=== PATIENT | male | born 1935 | race Caucasian/White ===

== ENCOUNTER 2018-04-22 18:30 | Observation (INO) ==
[2018-04-22 20:21] LABS: Baso % (Auto) 0.3 % (0.0-2.0); Eos % (Auto) 0.3 % (0.0-4.0); Hemoglobin 13.7 gm/dL (13.0-17.0); Lymph # (Auto) 0.9 th/mm3 (1.0-4.8); Lymph % (Auto) 9.5 % (9.0-44.0); Mean Corpuscular HGB Conc 32.7 % (32.0-36.0); Mean Corpuscular Hemoglobin 29.2 pg (27.0-34.0); Mean Corpuscular Volume 89.2 fL (80.0-100.0); Mean Platelet Volume 7.6 fL (7.0-11.0); Mono # (Auto) 0.4 th/mm3 (0.0-0.9); Mono % (Auto) 4.2 % (0.0-8.0); Neut # (Auto) 7.8 th/mm3 (1.8-7.7); Neut % (Auto) 85.7 % (16.0-70.0); Platelet Count 262 th/mm3 (150-450); Red Blood Count 4.71 mil/mm3 (4.50-5.90); Red Cell Distribution Width 13.5 % (11.6-17.2); White Blood Count 9.1 th/mm3 (4.0-11.0)
[2018-04-22 20:30] LABS: Bilirubin,Urine Negative (Negative); Clarity,Urine Slightly Cloudy (Clear); Color,Urine Yellow (Yellw/Straw); Leukocyte Esterase,Urine Negative (Negative); Nitrite,Urine Negative (Negative); PH,Urine 6.5 (5.0-8.5); Urobilinogen,Urine 0.2 mg/dL (Less than 2)
[2018-04-22 20:32] LABS: Chloride 105 meq/L (98-107); Potassium 3.8 meq/L (3.5-5.1); Sodium 139 meq/L (136-145)
--- NOTE | 2018-04-22 20:33 | XR ---
EXAM DATE: 04/22/2018 8:23 PM EST AGE/SEX: 82 years / Male INDICATIONS: Hypertension. Weakness. CLINICAL DATA: This is the patient's subsequent encounter. Patient reports that signs and symptoms h ave been present for 1 day and indicates a pain score of 4/10. MEDICAL/SURGICAL HISTORY: None. None. COMPARISON: [facility], XR CHEST PA AND LAT, 07/24/2017. . FINDINGS: A single AP view of the chest demonstrates the lungs to be symmetrically aerated without evidence of mass, infiltrate or effusion. The cardiomediastinal contours are unremarkable. Osseous structures a re intact. CONCLUSION: No active disease. Electronically signed by: Pelon Sanchez MD Board Certified Radiologist 04/22/2018 8:32 PM EST
[2018-04-22 20:34] LABS: Calcium 8.8 mg/dL (8.5-10.1)
[2018-04-22 20:35] LABS: Anion Gap 10 meq/L (5-15); Blood Urea Nitrogen 33 mg/dL (7-18); Carbon Dioxide 23.9 meq/L (21.0-32.0); Glucose,Random 246 mg/dL (74-106)
[2018-04-22 20:37] LABS: Activated Partial Thrombo Time 24.8 sec (23.4-31.7); INR 1.1 Ratio; Prothrombin Time 11.1 sec (9.8-11.6)
[2018-04-22 20:38] LABS: Glomerular Filtration Rate 42 mL/min (>89)
--- NOTE | 2018-04-22 20:42 | ED ---
HPI General Chief Complaint: Nausea/Vomiting/Diarrhea Stated Complaint: dizziness/n/v Time Seen by Provider: 04/22/18 19:51 Source: patient and family Mode of arrival: ambulatory Limitations: no limitations History of Present Illness complaint: Reports dizziness Onset (ago): hour(s) (16) Time: 03:01 Timing: awoke with symptoms Description: Reports sense of movement, "room spinning" and off-balance History of similar episodes: No History of trauma: No Severity: moderate Relieving factors: remaining still Exacerbating factors: movement and position Associated symptoms: Reports ataxia, nausea and vomiting; Denies chest pain, confusion, diaphoresis, fever, chills, malaise, rash, shortness of breath, syncope, weakness and vision changes Related Data Home Medications Medication Instructions Recorded Confirmed amlodipine 5 mg PO DAILY 04/22/18 04/22/18 atorvastatin 40 mg PO DAILY 04/22/18 04/22/18 carvedilol 3.125 mg PO BID 04/22/18 04/22/18 cholecalciferol (vitamin D3) 2,000 unit PO DAILY 04/22/18 04/22/18 [Vitamin D3] glimepiride 2 mg PO BID 04/22/18 04/22/18 losartan 25 mg PO DAILY 04/22/18 04/22/18 sitagliptin [Januvia] 25 mg PO DAILY 04/22/18 04/22/18 Allergies Allergy/AdvReac Type Severity Reaction Status Date / Time Sulfa (Sulfonamide Allergy Severe HIVES Verified 04/22/18 18:49 Antibiotics) Review of Systems ROS: all other systems reviewed are negative [facility] Medical History Medical History History of high blood pressure (Acute) History of high cholesterol (Acute) History of umbilical hernia (Acute) Hx of coronary artery disease (Acute) Hx of diabetes mellitus (Acute) Surgical History Surgical History History of umbilical hernia repair (Acute) Hx of heart artery stent (Acute) Family History Family History Mother Family history of emphysema Father Family history of diabetes mellitus Social History Social History Substance History: No History of Abuse Second Hand Smoke Exposure: No Smoking Status: Former smoker Number of Pack-Years (if former smoker): 25 Smoking End Date: Patient quit smoking 40 years ago How Often Do You Have a Drink Containing Alcohol: Monthly or less Recent Travel in [facility] within the Last 8 Weeks: No Recent Out of Country Travel within the Last 8 Weeks: No Immunization History Tetanus Immunization: Unsure Exam Narrative Exam Narrative: GENERAL: Well-developed well-nourished male no acute distress no respiratory distress; GCS 15; NIH SS 0 SKIN: Focused skin assessment warm/dry. HEAD: Atraumatic. Normocephalic. EYES: Pupils equal and round. No scleral icterus. No injection or drainage. Horizontal nystagmus, no vertical nystagmus. ENT: No nasal bleeding or discharge. Mucous membranes pink and moist. NECK: Trachea midline. No JVD. CARDIOVASCULAR: Regular rate and rhythm. No murmur appreciated. RESPIRATORY: No accessory muscle use. Clear to auscultation. Breath sounds equal bilaterally. GASTROINTESTINAL: Abdomen soft, non-tender, nondistended. Hepatic and splenic margins not palpable. MUSCULOSKELETAL: No obvious deformities. No clubbing. No cyanosis. No edema. NEUROLOGICAL: Awake and alert. No obvious cranial nerve deficits. Motor grossly within normal limits. No limb ataxia. No pronator drift. Sensory exam intact. DTRs 2+ and equal without clonus. Normal speech. PSYCHIATRIC: Appropriate mood and affect; insight and judgment normal. Course Consultations Consultation #1: Discussed with Dr. Puente recommends observation for echo MRI and initiating the patient on aspirin and Plavix will see in consultation Initial Documented Vital Signs Temperature 98.9 F 04/22/18 18:50 Pulse Rate 63 04/22/18 18:50 Respiratory Rate 18 04/22/18 18:50 Blood Pressure 181/77 H 04/22/18 18:50 Pulse Oximetry 99 04/22/18 18:50 Last Documented Vital Signs Temperature 96.2 F L 04/23/18 11:35 Pulse Rate 74 04/23/18 11:35 Respiratory Rate 18 04/23/18 11:35 Blood Pressure 153/74 H 04/23/18 11:35 Pulse Oximetry 98 04/23/18 11:35 Medical Decision Making [facility] Narrative Medical decision making narrative: 82-year-old male with dizziness and some mild balance disturbance since 3 AM. Symptoms have been unchanged since onset. Patient noted symptoms after awakening from sleep at 3 AM. Patient went to bed feeling well around 10 PM Monday evening. No chest pain no shortness of breath has had some vomiting. No headache no loss of vision no double vision initially felt like ceiling was spinning. Symptoms do not appear to be positional. Patient has history of CAD, hypertension, dyslipidemia, diabetes. Takes asa 81 mg daily no other blood thinners. No recent febrile illness. Patient placed on monitor IV access obtained specimens collected and sent for resulting patient given bolus of normal saline to 500 cc with maintenance fluids at [address] brain noncontrast ordered along with CTA of the head and neck stroke alert not called as current NIH score is 0, during evaluation nystagmus resolved, has no actual symptoms at this time; denies dizzness nausea and no vomiting. Call placed to neurology; discussed with Dr. Puente; recommends unremarkable studies aspirin Plavix 23-hour observation and neurology consult. Discussed with neurologist aware of imaging results and will see in consultation in the a.m.; call placed to [facility] service Dr Saini; patient and family informed of all imaging results and lab results and is agreeable to stay for observation further evaluation with MRI and echo Medical Screen Exam Complete: Yes Emergency Medical Condition: Yes Differential Diagnosis Differential Diagnosis: Vertigo, labyrinthitis, TIA, cerebellar CVA, VBI, arrhythmia Medical Records Medical records reviewed: Yes I reviewed the patient's medical records. Lab Data Lab results reviewed: Yes I reviewed the patient's lab results. Result diagrams: 04/23/18 04:35 04/23/18 04:35 Lab Results 04/22/18 04/22/18 04/22/18 Range/Units 20:10 20:10 20:10 CBC w Diff Auto diff final WBC 9.1 (4.0-11.0) th/mm3 RBC 4.71 (4.50-5.90) mil/mm3 Hgb 13.7 (13.0-17.0) gm/dL Hct 42.0 (39.0-51.0) % MCV 89.2 (80.0-100.0) fL MCH 29.2 (27.0-34.0) pg MCHC 32.7 (32.0-36.0) % RDW 13.5 (11.6-17.2) % Plt Count 262 (150-450) th/mm3 MPV 7.6 (7.0-11.0) fL Neut % (Auto) 85.7 H (16.0-70.0) % Lymph % (Auto) 9.5 (9.0-44.0) % [place] % (Auto) 4.2 (0.0-8.0) % Eos % (Auto) 0.3 (0.0-4.0) % Baso % (Auto) 0.3 (0.0-2.0) % Neut # (Auto) 7.8 H (1.8-7.7) th/mm3 Lymph # (Auto) 0.9 L (1.0-4.8) th/mm3 [place] # (Auto) 0.4 (0.0-0.9) th/mm3 Eos # (Auto) 0.0 (0.0-0.4) th/mm3 Baso # (Auto) 0.0 (0.0-0.2) th/mm3 WBC Differential . Differential Comment . ESR (0-20) mm/hr PT 11.1 (9.8-11.6) sec INR 1.1 Ratio APTT 24.8 (23.4-31.7) sec Sodium 139 (136-145) meq/L Potassium 3.8 (3.5-5.1) meq/L Chloride 105 (98-107) meq/L Carbon Dioxide 23.9 (21.0-32.0) meq/L Anion Gap 10 (5-15) meq/L BUN 33 H (7-18) mg/dL Creatinine 1.60 H (0.60-1.30) mg/dL Estimated GFR 42 L (>89) mL/min POC Glucose (68-110) mg/dl Random Glucose 246 H (74-106) mg/dL Calcium 8.8 (8.5-10.1) mg/dL Total Bilirubin (0.2-1.0) mg/dL AST (15-37) U/L ALT (12-78) U/L Alkaline Phosphatase (45-117) U/L Troponin I Less than 0.02 L (0.02-0.05) ng/mL Total Protein (6.4-8.2) g/dL Albumin (3.4-5.0) g/dL TSH (0.358-3.740) uIU/mL Urine Color (Yellw/Straw) Urine Clarity (Clear) Urine pH (5.0-8.5) Ur Specific [place] (1.002-1.035) Urine Protein (Neg-Trace) mg/dL Urine Glucose (UA) (Negative) mg/dL Urine Ketones (Negative) mg/dL Urine Occult Blood (Negative) Urine Nitrate (Negative) Urine Bilirubin (Negative) Urine Urobilinogen (Less than 2) mg/dL Ur Leukocyte Esterase (Negative) Urine RBC (0-3) /hpf Urine WBC (0-5) /hpf Ur Squamous Epith Cells (0-5) /hpf Micro UA Comment Ur Microscopic Review Urine Culture Comments 04/22/18 04/23/18 04/23/18 Range/Units 20:15 04:35 04:35 CBC w Diff Auto diff final WBC 12.8 H (4.0-11.0) th/mm3 RBC 4.46 L (4.50-5.90) mil/mm3 Hgb 13.3 (13.0-17.0) gm/dL Hct 39.5 (39.0-51.0) % MCV 88.6 (80.0-100.0) fL MCH 29.8 (27.0-34.0) pg MCHC 33.6 (32.0-36.0) % RDW 13.6 (11.6-17.2) % Plt Count 253 (150-450) th/mm3 MPV 8.4 (7.0-11.0) fL Neut % (Auto) 83.3 H (16.0-70.0) % Lymph % (Auto) 9.4 (9.0-44.0) % [place] % (Auto) 6.4 (0.0-8.0) % Eos % (Auto) 0.8 (0.0-4.0) % Baso % (Auto) 0.1 (0.0-2.0) % Neut # (Auto) 10.7 H (1.8-7.7) th/mm3 Lymph # (Auto) 1.2 (1.0-4.8) th/mm3 [place] # (Auto) 0.8 (0.0-0.9) th/mm3 Eos # (Auto) 0.1 (0.0-0.4) th/mm3 Baso # (Auto) 0.0 (0.0-0.2) th/mm3 WBC Differential . Differential Comment . ESR (0-20) mm/hr PT (9.8-11.6) sec INR Ratio APTT (23.4-31.7) sec Sodium 141 (136-145) meq/L Potassium 3.4 L (3.5-5.1) meq/L Chloride 106 (98-107) meq/L Carbon Dioxide 25.0 (21.0-32.0) meq/L Anion Gap 10 (5-15) meq/L BUN 33 H (7-18) mg/dL Creatinine 1.50 H (0.60-1.30) mg/dL Estimated GFR 45 L (>89) mL/min POC Glucose (68-110) mg/dl Random Glucose 196 H (74-106) mg/dL Calcium 8.7 (8.5-10.1) mg/dL Total Bilirubin 0.7 (0.2-1.0) mg/dL AST 15 (15-37) U/L ALT 22 (12-78) U/L Alkaline Phosphatase 67 (45-117) U/L Troponin I (0.02-0.05) ng/mL Total Protein 6.9 (6.4-8.2) g/dL Albumin 3.7 (3.4-5.0) g/dL TSH (0.358-3.740) uIU/mL Urine Color Yellow (Yellw/Straw) Urine Clarity Slightly cloudy (Clear) Urine pH 6.5 (5.0-8.5) Ur Specific [place] 1.020 (1.002-1.035) Urine Protein 100 H (Neg-Trace) mg/dL Urine Glucose (UA) 1000 or greater H (Negative) mg/dL Urine Ketones 40 H (Negative) mg/dL Urine Occult Blood Moderate H (Negative) Urine Nitrate Negative (Negative) Urine Bilirubin Negative (Negative) Urine Urobilinogen 0.2 (Less than 2) mg/dL Ur Leukocyte Esterase Negative (Negative) Urine RBC 15-50 H (0-3) /hpf Urine WBC 6-8 H (0-5) /hpf Ur Squamous Epith Cells 6-10 H (0-5) /hpf Micro UA Comment Culture not ind Ur Microscopic Review Microscopic reviewed Urine Culture Comments Culture not ind 04/23/18 04/23/18 04/23/18 Range/Units 04:35 04:35 07:01 CBC w Diff WBC (4.0-11.0) th/mm3 RBC (4.50-5.90) mil/mm3 Hgb (13.0-17.0) gm/dL Hct (39.0-51.0) % MCV (80.0-100.0) fL MCH (27.0-34.0) pg MCHC (32.0-36.0) % RDW (11.6-17.2) % Plt Count (150-450) th/mm3 MPV (7.0-11.0) fL Neut % (Auto) (16.0-70.0) % Lymph % (Auto) (9.0-44.0) % [place] % (Auto) (0.0-8.0) % Eos % (Auto) (0.0-4.0) % Baso % (Auto) (0.0-2.0) % Neut # (Auto) (1.8-7.7) th/mm3 Lymph # (Auto) (1.0-4.8) th/mm3 [place] # (Auto) (0.0-0.9) th/mm3 Eos # (Auto) (0.0-0.4) th/mm3 Baso # (Auto) (0.0-0.2) th/mm3 WBC Differential Differential Comment ESR 7 (0-20) mm/hr PT (9.8-11.6) sec INR Ratio APTT (23.4-31.7) sec Sodium (136-145) meq/L Potassium (3.5-5.1) meq/L Chloride (98-107) meq/L Carbon Dioxide (21.0-32.0) meq/L Anion Gap (5-15) meq/L BUN (7-18) mg/dL Creatinine (0.60-1.30) mg/dL Estimated GFR (>89) mL/min POC Glucose 202 (68-110) mg/dl Random Glucose (74-106) mg/dL Calcium (8.5-10.1) mg/dL Total Bilirubin (0.2-1.0) mg/dL AST (15-37) U/L ALT (12-78) U/L Alkaline Phosphatase (45-117) U/L Troponin I Less than 0.02 L (0.02-0.05) ng/mL Total Protein (6.4-8.2) g/dL Albumin (3.4-5.0) g/dL TSH 0.950 (0.358-3.740) uIU/mL Urine Color (Yellw/Straw) Urine Clarity (Clear) Urine pH (5.0-8.5) Ur Specific [place] (1.002-1.035) Urine Protein (Neg-Trace) mg/dL Urine Glucose (UA) (Negative) mg/dL Urine Ketones (Negative) mg/dL Urine Occult Blood (Negative) Urine Nitrate (Negative) Urine Bilirubin (Negative) Urine Urobilinogen (Less than 2) mg/dL Ur Leukocyte Esterase (Negative) Urine RBC (0-3) /hpf Urine WBC (0-5) /hpf Ur Squamous Epith Cells (0-5) /hpf Micro UA Comment Ur Microscopic Review Urine Culture Comments 04/23/18 Range/Units 11:31 CBC w Diff WBC (4.0-11.0) th/mm3 RBC (4.50-5.90) mil/mm3 Hgb (13.0-17.0) gm/dL Hct (39.0-51.0) % MCV (80.0-100.0) fL MCH (27.0-34.0) pg MCHC (32.0-36.0) % RDW (11.6-17.2) % Plt Count (150-450) th/mm3 MPV (7.0-11.0) fL Neut % (Auto) (16.0-70.0) % Lymph % (Auto) (9.0-44.0) % [place] % (Auto) (0.0-8.0) % Eos % (Auto) (0.0-4.0) % Baso % (Auto) (0.0-2.0) % Neut # (Auto) (1.8-7.7) th/mm3 Lymph # (Auto) (1.0-4.8) th/mm3 [place] # (Auto) (0.0-0.9) th/mm3 Eos # (Auto) (0.0-0.4) th/mm3 Baso # (Auto) (0.0-0.2) th/mm3 WBC Differential Differential Comment ESR (0-20) mm/hr PT (9.8-11.6) sec INR Ratio APTT (23.4-31.7) sec Sodium (136-145) meq/L Potassium (3.5-5.1) meq/L Chloride (98-107) meq/L Carbon Dioxide (21.0-32.0) meq/L Anion Gap (5-15) meq/L BUN (7-18) mg/dL Creatinine (0.60-1.30) mg/dL Estimated GFR (>89) mL/min POC Glucose 206 (68-110) mg/dl Random Glucose (74-106) mg/dL Calcium (8.5-10.1) mg/dL Total Bilirubin (0.2-1.0) mg/dL AST (15-37) U/L ALT (12-78) U/L Alkaline Phosphatase (45-117) U/L Troponin I (0.02-0.05) ng/mL Total Protein (6.4-8.2) g/dL Albumin (3.4-5.0) g/dL TSH (0.358-3.740) uIU/mL Urine Color (Yellw/Straw) Urine Clarity (Clear) Urine pH (5.0-8.5) Ur Specific [place] (1.002-1.035) Urine Protein (Neg-Trace) mg/dL Urine Glucose (UA) (Negative) mg/dL Urine Ketones (Negative) mg/dL Urine Occult Blood (Negative) Urine Nitrate (Negative) Urine Bilirubin (Negative) Urine Urobilinogen (Less than 2) mg/dL Ur Leukocyte Esterase (Negative) Urine RBC (0-3) /hpf Urine WBC (0-5) /hpf Ur Squamous Epith Cells (0-5) /hpf Micro UA Comment Ur Microscopic Review Urine Culture Comments Imaging Data Radiologist's impression: Chest X-Ray 04/22/18 19:51 CONCLUSION: No active disease. Head CT 04/22/18 19:51 CONCLUSION: 1. No acute intracranial abnormality. . . Head CTA 04/22/18 20:04 CONCLUSION: 1. Negative CTA Head. . . Neck CTA 04/22/18 20:04 CONCLUSION: 1. Mild stenosis of proximal left internal carotid artery. No hemodynamically significant stenosis in the carotid arteries bilaterally. Vertebral arteries are patent. No aneurysm or dissection. ECG Data EKG Prior to Arrival: No Attestation: I personally reviewed and interpreted this ECG as follows: (EKG: Normal sinus rhythm rate [address] elevation injury pattern or ectopy noted ) Discharge Plan Discharge Disposition Patient Disposition: ED Admit(ED Internal Use Only) Discharge Condition Condition: Stable Discharge Order Discharge Orders: ED Use Only Admit Order (Routine); Ordered 04/22/18 Ordered By: Lynn Ray Discharge Details Diagnosis: Vertigo Physicians Team ED Provider: Lynn Ray Primary Care Provider: UNKNOWN, Attending Provider: Edgar Starr Other Providers: Tenzin Goldstein ; Daniella,[employer] Status ED Status: Left Department Discharge Information Discharge Date/Time: 04/23/18 01:13
[2018-04-22] MEDS ORDERED: Sodium Chlor 0.9% Inj 250 ML IV.SIG SCH (21:00)
[2018-04-22] MEDS: Sod Chloride 0.9% Inj 1,000 ML IV.CONT SCH ×2 (21:10→23:15)
--- NOTE | 2018-04-22 21:33 | CT ---
EXAM DATE: 04/22/2018 9:21 PM EST AGE/SEX: 82 years / Male INDICATIONS: Dizziness. CLINICAL DATA: This is the patient's initial encounter. Patient reports that signs and symptoms have been present for 1 day and indicates a pain score of 3/10. MEDICAL/SURGICAL HISTORY: . High blood pressure. High cholesterol. Umbilical hernia. Coronary arter y disease. Diabetes mellitus. . Heart artery stent. RADIATION DOSE: 57.90 CTDI (mGy) COMPARISON: [facility], CTA HEAD W CONTRAST W 3D, 04/22/2018. . TECHNIQUE: CT of the head without contrast. Using automated exposure control and adjustment of the mA and/or kV according to patient size, radiation dose was kept as low as reasonably achievable to ob tain optimal diagnostic quality images. DICOM format image data is available electronically for revi ew and comparison. FINDINGS: Cerebrum: The ventricles are normal for age. No evidence of midline shift, mass lesion, hemorrhage or acute infarction. No extraaxial fluid collections are seen. Posterior Fossa: The cerebellum and brainstem are intact. The 4th ventricle is midline. The cerebe llopontine angle is unremarkable. Extracranial: The visualized portion of the orbits is intact. Skull: The calvaria is intact. No evidence of skull fracture. CONCLUSION: 1. No acute intracranial abnormality. . . Electronically signed by: Pelon Sanchez MD Board Certified Radiologist 04/22/2018 9:31 PM EST
--- NOTE | 2018-04-22 21:36 | CT ---
EXAM DATE: 04/22/2018 9:24 PM EST AGE/SEX: 82 years / Male INDICATIONS: Dizziness. CLINICAL DATA: This is the patient's initial encounter. Patient reports that signs and symptoms have been present for 1 day and indicates a pain score of 3/10. MEDICAL/SURGICAL HISTORY: . High blood pressure. High cholesterol. Umbilical hernia. Coronary arter y disease. Diabetes mellitus. . Heart artery stent. RADIATION DOSE: 42.78 CTDI (mGy) ; Combined studies COMPARISON: No prior exams available for comparison. TECHNIQUE: Volumetric scanning was performed using a multi-row detector CT scanner during bolus infu jimmie of 74 ml Omnipaque 350 (iohexol) nonionic water-soluble contrast as a cumulative dose for multi ple exams. The data was post processed with a variety of visualization algorithms including full vo lume maximum intensity projection, multi-planar sliding thin slab reformation, curved planar reformat ion, and surface rendering techniques. Using automated exposure control and adjustment of the mA and /or kV according to patient size, radiation dose was kept as low as reasonably achievable to obtain o ptimal diagnostic quality images. DICOM format image data is available electronically for review and comparison. FINDINGS: There is excellent visualization of the major intracranial arteries out to the second-order branch ve ssels. There is no evidence for aneurysm, vessel truncation or stenosis, and no evidence for vascula r malformation. CONCLUSION: 1. Negative CTA Head. . . Electronically signed by: Pelon Sanchez MD Board Certified Radiologist 04/22/2018 9:34 PM EST
--- NOTE | 2018-04-22 22:00 | CT ---
EXAM DATE: 04/22/2018 9:50 PM EST AGE/SEX: 82 years / Male INDICATIONS: Dizziness. CLINICAL DATA: This is the patient's initial encounter. Patient reports that signs and symptoms have been present for 1 day and indicates a pain score of 5/10. MEDICAL/SURGICAL HISTORY: . High blood pressure. High cholesterol. Umbilical hernia. Coronary arter y disease. Diabetes mellitus. . Heart artery stent. RADIATION DOSE: 42.78 CTDI (mGy) ; Combined studies COMPARISON: No prior exams available for comparison. TECHNIQUE: Volumetric scanning was performed using a multirow detector CT scanner during bolus infus ion of 74 ml Omnipaque 350 (iohexol) nonionic water-soluble contrast as a cumulative dose for multip le exams. The data was postprocessed with a variety of visualization algorithms including full-volu me maximum intensity projection, multiplanar sliding thin-slab reformation, curved-planar reformation , and surface-rendering techniques. Using automated exposure control and adjustment of the mA and/or kV according to patient size, radiation dose was kept as low as reasonably achievable to obtain opti mal diagnostic quality images. DICOM format image data is available electronically for review and co mparison. Percent stenosis is calculated using the diameter of the stenotic region over the diameter of the nor mal distal internal carotid artery. FINDINGS: Great vessel origins are patent. Both common carotid arteries are patent. There is atherosclerotic pl aque formation at both carotid bifurcations. There is a mild stenosis of the proximal left internal c arotid artery, less than 50%. Both vertebral arteries are patent. CONCLUSION: 1. Mild stenosis of proximal left internal carotid artery. No hemodynamically significant stenosis i n the carotid arteries bilaterally. Vertebral arteries are patent. No aneurysm or dissection. Electronically signed by: Pelon Sanchez MD Board Certified Radiologist 04/22/2018 9:58 PM EST
[2018-04-22] MEDS ORDERED: Dextrose 50% in Water 50 ML Vial IV.PUSH PRN (23:01)
[2018-04-22] MEDS ORDERED: Bisacodyl 10 MG Supp RECTAL PRN (23:06)
[2018-04-22] MEDS ORDERED: Acetaminophen 325 MG Tablet PO PRN (23:06)
[2018-04-23 06:27] LABS: Chloride 106 meq/L (98-107); Potassium 3.4 meq/L (3.5-5.1); Sodium 141 meq/L (136-145)
[2018-04-23 06:29] LABS: Baso % (Auto) 0.1 % (0.0-2.0); Eos # (Auto) 0.1 th/mm3 (0.0-0.4); Eos % (Auto) 0.8 % (0.0-4.0); Hematocrit 39.5 % (39.0-51.0); Hemoglobin 13.3 gm/dL (13.0-17.0); Lymph # (Auto) 1.2 th/mm3 (1.0-4.8); Lymph % (Auto) 9.4 % (9.0-44.0); Mean Corpuscular HGB Conc 33.6 % (32.0-36.0); Mean Corpuscular Hemoglobin 29.8 pg (27.0-34.0); Mean Corpuscular Volume 88.6 fL (80.0-100.0); Mean Platelet Volume 8.4 fL (7.0-11.0); Mono # (Auto) 0.8 th/mm3 (0.0-0.9); Mono % (Auto) 6.4 % (0.0-8.0); Neut # (Auto) 10.7 th/mm3 (1.8-7.7); Neut % (Auto) 83.3 % (16.0-70.0); Platelet Count 253 th/mm3 (150-450); Red Blood Count 4.46 mil/mm3 (4.50-5.90); Red Cell Distribution Width 13.6 % (11.6-17.2); White Blood Count 12.8 th/mm3 (4.0-11.0)
[2018-04-23 06:33] LABS: Calcium 8.7 mg/dL (8.5-10.1)
[2018-04-23 06:34] LABS: Albumin 3.7 g/dL (3.4-5.0); Anion Gap 10 meq/L (5-15); Blood Urea Nitrogen 33 mg/dL (7-18); Glucose,Random 196 mg/dL (74-106)
[2018-04-23 06:37] LABS: Alanine Aminotransferase 22 U/L (12-78); Aspartate Aminotransferase 15 U/L (15-37); Glomerular Filtration Rate 45 mL/min (>89)
[2018-04-23 06:38] LABS: Total Protein 6.9 g/dL (6.4-8.2)
[2018-04-23 06:40] LABS: Alkaline Phosphatase 67 U/L (45-117)
[2018-04-23] MEDS: Insulin NovoLOG Aspart Correctional Sugar Inj SQ SCH ×3 (07:22→16:30)
[2018-04-23] MEDS: Sod Chloride 0.9% Inj 1,000 ML IV.CONT SCH ×2 (08:18→11:42)
[2018-04-23] MEDS ORDERED: Senna/Docusate Sodium 8.6/50 MG Tablet PO SCH (09:00)
--- NOTE | 2018-04-23 09:54 | P.HPIM ---
History of Present Illness Primary Care Physician: UNKNOWN Chief Complaint: Dizziness History of Present Illness: 2-year-old male with known history of hypertension, hyperlipidemia, diabetes, coronary artery disease, arthritis who presented to hospital for persistent dizziness. Patient states that he woke up at 3 AM on Monday morning in order to go to the bathroom when he had sudden onset of the room spinning. Patient states that the sensation persisted throughout the day where every time he stood up the room would spin. If he would sit down or lay down he would not have any dizziness. The patient had approximately 4-5 episodes of nausea and vomiting because of the dizziness. Because he did not get any better his recommended that he go to the hospital for evaluation. Patient came to emergency department for evaluation in was given Zofran with improvement of his symptoms. ER physician contacted neurologist preschool paraprofessional who recommended that the patient be observed in the hospital for further neurological workup. Upon seeing the patient today he appears to be much improved. He has not try to get out of bed to see if he still has a dizziness. Patient indicates that he had an episode of this 8-9 years ago in which he was diagnosed with vertigo and was given Antivert with significant improvement. They have not had any recurrence since then. Patient denies any difficulty eating swallowing food, slurred speech, visual disturbances, unilateral weakness or paresthesia. Review of Systems Review of Systems: all other systems reviewed are negative Neurologic: Reports vertigo PMFSH Medical History Medical History History of high blood pressure (Acute) History of high cholesterol (Acute) History of umbilical hernia (Acute) Hx of coronary artery disease (Acute) Hx of diabetes mellitus (Acute) Surgical History Surgical History History of umbilical hernia repair (Acute) Hx of heart artery stent (Acute) Family History Family History Mother Family history of emphysema Father Family history of diabetes mellitus Social History Social History Substance History: No History of Abuse Second Hand Smoke Exposure: No Smoking Status: Former smoker Number of Pack-Years (if former smoker): 25 Smoking End Date: Patient quit smoking 40 years ago How Often Do You Have a Drink Containing Alcohol: Monthly or less Recent Travel in [facility] within the Last 8 Weeks: No Recent Out of Country Travel within the Last 8 Weeks: No Immunization History Tetanus Immunization: Unsure Medications and Allergies Allergies Allergy/AdvReac Type Severity Reaction Status Date / Time Sulfa (Sulfonamide Allergy Severe HIVES Verified 04/22/18 18:49 Antibiotics) Home Medications Medication Instructions Recorded Confirmed Type amlodipine 5 mg PO DAILY 04/22/18 04/22/18 History atorvastatin 40 mg PO DAILY 04/22/18 04/22/18 History carvedilol 3.125 mg PO BID 04/22/18 04/22/18 History cholecalciferol (vitamin D3) 2,000 unit PO DAILY 04/22/18 04/22/18 History [Vitamin D3] glimepiride 2 mg PO BID 04/22/18 04/22/18 History losartan 25 mg PO DAILY 04/22/18 04/22/18 History sitagliptin [Januvia] 25 mg PO DAILY 04/22/18 04/22/18 History Active Medications: Active Medications Acetaminophen (Tylenol) 650 mg PO Q4H PRN PRN Reason: Temp > 100.4 Al Hydroxide/Mg Hydroxide (Milk Of Em Sue) 30 ml PO Q12H PRN PRN Reason: Mild Constipation Last Admin: 04/23/18 01:49 Dose: 30 ml Aspirin (Ecotrin) 81 mg PO DAILY [facility] Last Admin: 04/23/18 08:21 Dose: 81 mg Atorvastatin Calcium (Lipitor) 40 mg PO DAILY [facility] Last Admin: 04/23/18 08:20 Dose: 40 mg Bisacodyl (Dulcolax Supp) 10 mg RECTAL DAILY PRN PRN Reason: SEVERE CONSITIPATION Clopidogrel Bisulfate (Plavix) 75 mg PO DAILY [facility] Last Admin: 04/23/18 08:21 Dose: 75 mg Dextrose (D50w Vial) 50 ml IV.PUSH UNSCH PRN PRN Reason: PER HYPOGLYCEMIA PROTOCOL Glucagon (Glucagon Inj) 1 mg OTHER PRN PRN PRN Reason: for Hypoglycemia Protocol Sodium Chloride (Ns Inj) 1,000 mls @ 70 mls/hr IV.CONT .[id number] [facility] Last Infusion: 04/22/18 23:13 Dose: Infused Sodium Chloride (Ns Inj) 1,000 mls @ 100 mls/hr IV.CONT .Q10H [facility] Last Admin: 04/23/18 08:18 Dose: 100 mls/hr Insulin Aspart (Novolog Insulin Correctional Sugar Inj) 0 unit SQ ACHS [facility]; Protocol Last Admin: 04/23/18 07:22 Dose: 3 unit Lactulose (Lactulose Liq) 30 ml PO DAILY PRN PRN Reason: SEVERE CONSITIPATION Meclizine HCl (Antivert) 25 mg PO Q8H PRN PRN Reason: DIZZINESS Ondansetron HCl (Zofran Inj) 4 mg IV.PUSH Q6H PRN PRN Reason: NAUSEA OR VOMITING Senna/Docusate Sodium (Ashleigh-Colace) 1 tab PO BID [facility] Last Admin: 04/23/18 08:21 Dose: 1 tab Sennosides (Senokot) 17.2 mg PO Q12H PRN PRN Reason: Moderate Constipation Sodium Chloride (Ns Flush) 2 ml IV.FLUSH PRN PRN PRN Reason: FLUSH AFTER USING IV ACCESS Sodium Chloride (Ns Flush) 2 ml IV.FLUSH BID [facility] Last Admin: 04/23/18 08:21 Dose: Not Given Sodium Chloride (Ns Flush) 2 ml IV.FLUSH PRN PRN PRN Reason: FLUSH AFTER USING IV ACCESS Physical Exam Vital signs: Vital Signs 04/22/18 18:50 04/22/18 19:55 04/22/18 21:50 Temperature 98.9 F 98.9 F Pulse Rate 63 62 67 Respiratory Rate 18 18 18 Blood Pressure 181/77 H 177/86 H 180/87 H Pulse Oximetry 99 100 98 04/23/18 00:17 04/23/18 01:28 04/23/18 04:00 Temperature 96.5 F L 97.0 F L Pulse Rate 70 77 67 Respiratory Rate 18 18 18 Blood Pressure 167/87 H 185/86 H 166/79 H Pulse Oximetry 98 98 96 04/23/18 08:00 Temperature 96.8 F L Pulse Rate 77 Respiratory Rate 20 Blood Pressure 163/75 H Pulse Oximetry 95 Intake & Output 04/22/18 04/23/18 04/23/18 18:59 06:59 18:59 Intake Total 390 / 390 1000 / 1000 Balance 390 / 390 1000 / 1000 Weight 81.4 kg 82.2 kg Intake: IV 390 / 390 1000 / 1000 NS Inj 1,000 ML @ 100 mls/hr IV 140 / 140 1000 / 1000 .CONT .Q10H SARAH Rx#:[id number] NS Inj 250 ML @ 500 mls/hr IV. 250 / 250 SIG BOLUS SARAH Rx#:[id number] Other: Weight On Admission 82.1 kg Narrative: GENERAL: Well-developed, well-nourished, in no acute distress. alert and orientated HEENT: Head is normocephalic without any lesions or masses noted. Facial features are symmetric. Eyes: Pupils equal round reactive to light. Extraocular muscles are intact. Conjunctivae were clear. Oropharyngeal: Pharynx without any erythema edema. Tongue is midline without deviation. Buccal mucosa is moist without any masses or lesions NECK: Supple without any masses. Trachea midline no deviation. No JVD, no bruits are appreciated CARDIAC: Regular rhythm, regular rate. S1/S2 are heard. No murmurs gallops or rubs. LUNGS: Clear to auscultation bilaterally. No wheeze, rhonchi or rales. No use of accessory muscles on inspiration or expiration. ABDOMEN: Soft, nontender. Nondistended. Bowel sounds heard in all 4 quadrants. No organomegaly or masses. Negative rebound, negative guarding EXTREMITIES: No edema, pulses are equal bilaterally. No cyanosis or clubbing NEUROLOGY: Mood and affect appear appropriate. Cranial nerves II through XII grossly intact. Muscle strength 5/5 in upper and lower extremities bilaterally. Deep tendon reflexes are 2+ in upper and lower extremities bilaterally. Results Labs CBC & Chem 7: 04/23/18 04:35 04/23/18 04:35 Imaging Impressions Chest X-Ray 04/22/18 19:51 CONCLUSION: No active disease. Head CT 04/22/18 19:51 CONCLUSION: 1. No acute intracranial abnormality. . . Head CTA 04/22/18 20:04 CONCLUSION: 1. Negative CTA Head. . . Neck CTA 04/22/18 20:04 CONCLUSION: 1. Mild stenosis of proximal left internal carotid artery. No hemodynamically significant stenosis in the carotid arteries bilaterally. Vertebral arteries are patent. No aneurysm or dissection. Caprini VTE Risk Assessment Caprini VTE Risk Assessment: Moderate/High Risk (score >= 2) Caprini Risk Assessment Model: Point Value = 1 Point Value = 2 Point Value = 3 Point Value = 5 Age 41-60 Minor surgery BMI > 25 kg/m2 Swollen legs Varicose veins or History of unexplained or recurrent spontaneous Oral contraceptives or hormone replacement Sepsis (< 1 month) Serious lung disease, including pneumonia (< 1 month) Abnormal pulmonary function Acute myocardial infarction Congestive heart failure (< 1 month) History of inflammatory bowel disease Medical patient at bed rest Age 61-74 Arthroscopic surgery Major open surgery (> 45 min) Laparoscopic surgery (> 45 min) Malignancy Confined to bed (> 72 hours) Immobilizing plaster cast Central venous access Age >= 75 History of VTE Family history of VTE Factor V Leiden Prothrombin [id number] Lupus anticoagulant Anticardiolipin antibodies Elevated serum homocysteine Heparin-induced thrombocytopenia Other congenital or acquired thrombophilia Stroke (< 1 month) Elective arthroplasty Hip, pelvis, or leg fracture Acute spinal cord injury (< 1 month) Prophylaxis Regimen: Total Risk Factor Score Risk Level Prophylaxis Regimen 0-1 Low Early ambulation 2 Moderate Order ONE of the following: *Sequential Compression Device (SCD) *Heparin 5000 units SQ BID 3-4 Higher Order ONE of the following medications: *Heparin 5000 units SQ TID *Enoxaparin/Lovenox 40 mg SQ daily (WT < 150 kg, CrCl > 30 mL/min) *Enoxaparin/Lovenox 30 mg SQ daily (WT < 150 kg, CrCl > 10-29 mL/min) *Enoxaparin/Lovenox 30 mg SQ BID (WT < 150 kg, CrCl > 30 mL/min) AND/OR *Sequential Compression Device (SCD) 5 or more Highest Order ONE of the following medications: *Heparin 5000 units SQ TID (Preferred with Epidurals) *Enoxaparin/Lovenox 40 mg SQ daily (WT < 150 kg, CrCl > 30 mL/min) *Enoxaparin/Lovenox 30 mg SQ daily (WT < 150 kg, CrCl > 10-29 mL/min) *Enoxaparin/Lovenox 30 mg SQ BID (WT < 150 kg, CrCl > 30 mL/min) AND *Sequential Compression Device (SCD) Assessment and Plan Plan Dizziness Patient has sudden onset of dizziness with the room spinning and associated nausea vomiting Patient was given Zofran emergency department with improvement CT/CTA of the brain was unremarkable CTA of the carotids did not indicate any significant stenosis Patient is deferring MRI study at this time Awaiting echocardiogram Additional labs to include sed rate, B12, folate, TSH, RPR, lipid Neurology consulted for further recommendations PT/OT evaluations. Physical therapy indicating that patient will require outpatient rehab, possible vestibular rehab. Recommending evaluation by neurology Telemetry was reviewed and did not indicate any acute arrhythmia Patient was given Antivert for symptomatically relief Hypertension, hyper lipidemia, coronary artery disease Continue home medications Diabetes Accu-Cheks with sliding scale insulin DVT prevention Sequential compression devices Discussed Condition With: Patient, family at bedside, nursing staff, Dr. Starr H&P: Quality VTE Deep Vein Thrombosis/Pulmonary Embolism Present on Admission: No
[2018-04-23 11:36] VITALS: RESP 18; O2SAT 98
[2018-04-23 14:06] LABS: Cholesterol 133 mg/dL (120-200)
[2018-04-23 14:33] LABS: HDL Cholesterol 53.2 mg/dL (40.0-60.0); LDL Cholesterol,Calculated 68 mg/dL (0-99); Triglycerides 61 mg/dL (42-150); Vitamin B12 667 pg/mL (193-986)
[2018-04-23 16:03] VITALS: BP 172/81; PULSE 68; TEMP 96.6
--- NOTE | 2018-04-23 16:31 | ECG ---
Date Performed: 04/22/2018 Time Performed: 22:50:52 PTAGE: 82 years EKG: Sinus rhythm WITH SINUS ARRHYTHMIA INFERIOR INFARCT, AGE UNDETERMINED, BUT LARGELY UNCHANGED FROM PRIOR TRACING. LOSS OF R-WAVE V2, V4 COMPARED TO PRIOR TRACING. CANNOT RULE OUT ANTERIOR INJURY. NORMAL ECG PREVIOUS TRACING : 10/23/2013 04.58 DOCTOR: Dinh Bautista Interpretating Date/Time 04/23/2018 16:31:02
--- NOTE | 2018-04-23 17:53 | ECHRPT ---
Indication: CVA/TIA CONCLUSIONS The left ventricular systolic function is normal with an estimated ejection fraction in the range of 55-60%. Doppler parameters are consistent with impaired left ventricular relaxtion (grade 1 diastolic dysfun ction). Mild mitral valve regurgitation. There is trace tricuspid valve regurgitation. BP: / HR: Rhythm: MEASUREMENTS (Male / Female) Normal Values Technical Quality:Fair 2D ECHO LV Diastolic Diameter PLAX 5.1 cm 4.2 - 5.9 / 3.9 - 5.3 cm LV Systolic Diameter PLAX 3.3 cm IVS Diastolic Thickness 0.9 cm 0.6 - 1.0 / 0.6 - 0.9 cm LVPW Diastolic Thickness 1.0 cm 0.6 - 1.0 / 0.6 - 0.9 cm LV Relative Wall Thickness 0.4 RV Internal Dim ED PLAX 2.8 cm LVOT Diameter 2.0 cm Aortic Root Diameter 2.8 cm LA Systolic Diameter LX 3.3 cm 3.0 - 4.0 / 2.7 - 3.8 cm DOPPLER AV Peak Velocity 172.0 cm/s AV Peak Gradient 11.8 mmHg AV Mean Gradient 7.0 mmHg AV Velocity Time Integral 41.1 cm LVOT Peak Velocity 157.0 cm/s LVOT Peak Gradient 9.9 mmHg LVOT Velocity Time Integral 36.4 cm AV Area Cont Eq vti 2.8 cm AV Area Cont Eq pk 2.9 cm Mitral E Point Velocity 112.0 cm/s Mitral A Point Velocity 128.0 cm/s Mitral E to A Ratio 0.9 LV E' Lateral Velocity 8.8 cm/s Mitral E to LV E' Lateral Ratio 12.8 LV E' Septal Velocity 6.0 cm/s Mitral E to LV E' Septal Ratio 18.5 TR Peak Velocity 203.0 cm/s TR Peak Gradient 16.5 mmHg Right Atrial Pressure 10.0 mmHg Pulmonary Artery Systolic Pressu 26.5 mmHg Right Ventricular Systolic Press 26.5 mmHg PV Peak Velocity 74.7 cm/s PV Peak Gradient 2.2 mmHg FINDINGS LEFT VENTRICLE Normal left ventricular size. Wall thickness is measured at the upper limits of normal. The left ventricular systolic function is normal with an estimated ejection fraction in the range of 55-60%. Doppler parameters are consistent with impaired left ventricular relaxtion (grade 1 diastolic dysfun ction). RIGHT VENTRICLE Normal right ventricular size and systolic function. LEFT ATRIUM The left atrial size is normal. RIGHT ATRIUM The right atrial size is normal. ATRIAL SEPTUM Normal atrial septal thickness without atrial level shunting by limited color doppler interrogation. AORTA The aortic root and proximal ascending aorta are normal in size on limited imaging. MITRAL VALVE Structurally normal mitral valve. No mitral valve stenosis. Mild mitral valve regurgitation. AORTIC VALVE Aortic valve sclerosis is present. No aortic valve regurgitation. No aortic valve stenosis. TRICUSPID VALVE Grossly normal There is trace tricuspid valve regurgitation. The estimated pulmonary arterial pressure is 27 mmHg. PULMONARY VALVE No pulmonary valve regurgitation or stenosis. VESSELS The inferior vena cava is normal in size. PERICARDIUM No pericardial effusion. Sanket Cruz DO (Electronically Signed) Final Date:23 April 2018 17:52
--- NOTE | 2018-04-23 18:42 | MB ---
cc: Tenzin Goldstein MD, PhD DATE: 04/23/2018 REASON FOR CONSULTATION: Vertigo. HISTORY OF PRESENT ILLNESS: Mr. 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 The room was spinning. It was positional in nature. If he held still, it resolved. If he got up and moved, it came. He had no other neurological symptoms. No double vision, etc. He is much better today. The Antivert has helped. PAST MEDICAL HISTORY: He has a history of vertigo in the past, history of hypertension, hyperlipidemia, coronary artery disease, diabetes. CURRENT MEDICATIONS: 1. Tylenol. 2. Milk of magnesia. 3. Ecotrin. 4. Lipitor. 5. Dulcolax. 6. Plavix. NEUROLOGIC EXAMINATION: VITAL SIGNS: Blood pressure is 150/74, pulse 74, respirations 18, temperature 96 degrees. NEUROLOGIC: Higher cortical functions normal. Cranial nerves are intact. The extraocular movements are normal. There is no nystagmus. There is no ____. Pupils are equal and reactive. On motor examination, he has 5/5 strength in all groups. Cerebellar testing is normal with no dysmetria. Reflexes symmetric. IMAGING STUDIES: CT of the brain, no acute change. He had CTA of the head that is normal. CTA neck showed mild stenosis of the left ICA, not hemodynamically significant. Vertebrals are normal. IMPRESSION: Benign positional vertigo. RECOMMENDATION: No further neurologic evaluation. At the present time, the patient is stable for discharge on p.r.n. meclizine. Tenzin Goldstein MD, PhD KIA/sv/ll , 05:10 PM , 05:17 PM
== END 2018-04-23 17:41 | disposition home or self-care (01) ==
LOC: PHED 18:30 → PHEDA 18:30 → PH3 04-23 01:03
PROVIDERS: ADMIT Hospitalist; ATTEND Hospitalist
CPT/HCPCS: 70450; 70496; 70498; 71010; 71045; 80048; 80053; 80061; 81001; 82607; 82746; 82948; 82962; 84443; 84484; 85025; 85610; 85651; 85652; 85730; 90761; 90774; 93005; 93306; 96361; 96372; 96374; 97162; 97166; 99285; C8952; G0378; G8987; G8988; G8989; J1815; J2405; J7030; J7050; Q9967